=== PATIENT | male | born 1980 | race Asian ===

== ENCOUNTER 2020-12-02 02:30 | Emergency (ER) | payer OTHER ==
[~2020-12-02] VITALS: Ht 175.3 cm; Wt 72.6 kg
[2020-12-02 04:30] VITALS: BP 107/67
== END 2020-12-02 04:33 | disposition home or self-care (01) ==
LOC: ER 02:30
DX: U07.1 COVID-19 (principal); J12.82 Pneumonia due to coronavirus disease 2019